=== PATIENT | male | born 1965 | race Caucasian/White ===

== ENCOUNTER 2017-02-13 17:13 | Observation (INO) | payer SELFPAY ==
[2017-02-13 19:04] LABS: BASO % 0.1 % (0-2); EOS % 0.6 % (0-7); EOSINOPHIL ABSOLUTE COUNT 0.1 tho/cmm (0.0-0.7); HCT-HEMATOCRIT 36.4 % (36.0-53.5); IMMATURE GRANULOCYTES ABSOLUTE 0.18 tho/cmm (0-0.03); IMMATURE GRANULOCYTES PERCENT 1.8 % (0-0.3); LYMPH % 17.3 % (20-45); LYMPH ABSOLUTE COUNT 1.7 tho/cmm (0.8-4.5); MCV (MEAN CELL VOLUME) 81.8 fl (82.0-96.0); MEAN PLATELET VOLUME 9.9 cmc (9.4-12.4); MONO % 8.1 % (0-12); MONOCYTE ABSOLUTE COUNT 0.8 tho/cmm (0.0-1.2); NEUTROPHIL ABSOLUTE COUNT 7.2 tho/cmm (1.6-8.0); NEUTROPHIL-AUTOMATED 7.2 tho/cmm (1.6-8.0); NEUTROPHILS % 72.1 % (40-80); RED BLOOD COUNT 4.45 mil/cmm (4.40-5.70); RED CELL DISTRIBUTION WIDTH 15.6 % (12.4-16.4); WHITE BLOOD COUNT 9.9 tho/cmm (4.0-10.0)
[2017-02-13 19:35] LABS: ALBUMIN 3.1 g/dl (3.5-5.0); ALKALINE PHOSPHATASE 71 U/L (33-138); ALT/SGPT 36 U/L (12-78); ANION GAP 14 mmol/L (0-20); AST/SGOT 15 U/L (10-40); BILIRUBIN,TOTAL 0.4 mg/dl (0.0-1.5); BLOOD UREA NITROGEN 17 mg/dl (6-24); CALCIUM 8.7 mg/dl (8.5-10.5); CARBON DIOXIDE-VENOUS 27 mmol/L (22-32); CHLORIDE 103 mmol/l (96-110); CREATININE 0.86 mg/dl (0.60-1.30); GLUCOSE 198 mg/dL (70-110); POTASSIUM 4.4 mmol/L (3.7-5.1); SODIUM 140 mmol/L (135-145); eGFR VALUE FOR BLACK >90 mL/Min
[2017-02-13 19:52] LABS: PLATELET COUNT 219 tho/cmm (150-450)
[2017-02-13] MEDS ORDERED: LOPRESSOR100 M1 PO (20:45)
[2017-02-13] MEDS ORDERED: PRINIVIL20 M1 PO (20:46)
[2017-02-13] MEDS ORDERED: ASPIRIN81 M1 PO (20:46)
[2017-02-13] MEDS ORDERED: PLAVIX75 M1 PO (20:46)
[2017-02-13] MEDS ORDERED: LANTUS SOL100 UNIT/1 SC (20:48)
[2017-02-13] MEDS ORDERED: NOVOLOG100 UNIT/2 SC (20:51)
[2017-02-13] MEDS ORDERED: PERCOCET 5-3251 EACH PO (20:54)
[2017-02-13] MEDS ORDERED: DELTASONE20 MG PO (20:54)
[2017-02-13] MEDS ORDERED: NITROSTAT0.4 MG/TAB SL (20:55)
[2017-02-14 00:46] LABS: INR 0.9 INR (0.9-1.1); PROTHROMBIN TIME 10.6 SECONDS (9.0-13.6)
[2017-02-15 05:29] LABS: ANION GAP 12 mmol/L (0-20); BLOOD UREA NITROGEN 24 mg/dl (6-24); CALCIUM 8.7 mg/dl (8.5-10.5); CARBON DIOXIDE-VENOUS 27 mmol/L (22-32); CHLORIDE 98 mmol/l (96-110); CREATININE 0.97 mg/dl (0.60-1.30); POTASSIUM 4.3 mmol/L (3.7-5.1); SODIUM 133 mmol/L (135-145); eGFR VALUE FOR BLACK >90 mL/Min
[2017-02-15 05:39] LABS: GLUCOSE 315 mg/dL (70-110)
[2017-02-16 05:15] LABS: BLOOD UREA NITROGEN 25 mg/dl (6-24); CREATININE 1.04 mg/dl (0.60-1.30); eGFR VALUE FOR BLACK >90 mL/Min
[2017-02-16] MEDS ORDERED: LIPITOR20 M1 PO (11:57)
[2017-02-16] MEDS ORDERED: NORCO 5-325 TA1 EACH PO (12:50)
== END 2017-02-16 14:35 ==
LOC: EDMED 17:13 → PCUB 02-14 01:52
PROVIDERS: Emergency Medicine; Internal Medicine Cardiovascular Disease; ADMIT Internal Medicine Cardiovascular Disease
PROC: B2121ZZ Fluoroscopy of Single Coronary Artery Bypass Graft using Low Osmolar Contrast (ICD-10-PCS; principal; 2017-02-15)
DX: T82.855A Stenosis of coronary artery stent, initial encounter (principal); I10 Essential (primary) hypertension; E78.5 Hyperlipidemia, unspecified; E11.9 Type 2 diabetes mellitus without complications; F17.200 Nicotine dependence, unspecified, uncomplicated; Z88.5 Allergy status to narcotic agent; Z88.8 Allergy status to other drugs, medicaments and biological substances; Z79.82 Long term (current) use of aspirin; Z79.01 Long term (current) use of anticoagulants; Z79.899 Other long term (current) drug therapy; Y83.8 Other surgical procedures as the cause of abnormal reaction of the patient, or of later complication, without mention of misadventure at the time of the procedure; Z98.890 Other specified postprocedural states
CPT/HCPCS: C1751; C1894; G0378; J1170; J1200; J1644; J1720; J1815; J2250; J2550; J2930; J3010; J7030; J7512; Q9967